=== PATIENT | female | born 1995 | race Caucasian/White ===

== ENCOUNTER 2019-03-01 11:04 | Emergency (ER) | payer MEDICAID ==
[~2019-03-01] VITALS: Ht 157.5 cm; Wt 75.0 kg
[2019-03-01 11:07] VITALS: BP 114/50
--- NOTE | 2019-03-01 11:13 | NUR ---
PATIENT AMBULATED TO BED 4.
--- NOTE | 2019-03-01 11:14 | NUR ---
Note undone in EDM - 03/01/19 at 1126 by MED1 / BIB FATHER C/O BRUISING AND SWELLING AROUND LEFT EYE X2 DAYS. PT DENEIS TRAUMA. PT REPORTS SWELLING GOT BIGGER AFTER USING FLUTICASONE & KETOPROFEN.MEDHX:EXCEMA. PATIENT STATES PAIN OF 0/10 AT THIS TIME. PATIENT POSITIONED FOR COMFORT; HOB ELEVATED; BEDRAILS UP X1; BED DOWN. ER MD MADE AWARE OF PT STATUS.
--- NOTE | 2019-03-01 11:14 | NUR ---
23/F BIB FATHER C/O BRUISING AND SWELLING AROUND LEFT EYE X2 DAYS. PT DENEIS TRAUMA. PT REPORTS SWELLING GOT BIGGER AFTER USING FLUTICASONE & KETOPROFEN.MEDHX:ECZEMA. PATIENT STATES PAIN OF 0/10 AT THIS TIME. PATIENT POSITIONED FOR COMFORT; HOB ELEVATED; BEDRAILS UP X1; BED DOWN. ER MD MADE AWARE OF PT STATUS.
--- NOTE | 2019-03-01 11:21 | NUR ---
Patient being evaluated by DR JOLLEY at bedside.
[2019-03-01 11:27] VITALS: BP 114/50
--- NOTE | 2019-03-01 11:27 | NUR ---
Patient discharged BY DR JOLLEY with v/s stable. Written and verbal after care instructions given and explained. Patient alert, oriented and verbalized understanding of instructions. Ambulatory with steady gait. All questions addressed prior to discharge. ID band removed. Patient advised to follow up with PMD. Rx of KEFLEX given. Patient educated on indication of medication including possible reaction and side effects. Opportunity to ask questions provided and answered.
== END 2019-03-01 11:27 | disposition home or self-care (01) ==
LOC: MED 11:04
DX: H01.005 Unspecified blepharitis left lower eyelid (principal)
CPT/HCPCS: 99283

== ENCOUNTER 2019-09-04 14:49 | Emergency (ER) | payer MEDICAID ==
[~2019-09-04] VITALS: Ht 165.1 cm; Wt 77.6 kg
[2019-09-04 14:55] VITALS: BP 118/59
--- NOTE | 2019-09-04 15:10 | NUR ---
Jones key in EDM - 09/04/19 at 1657 by CRISTINA Bib family c/o headache X 4 days with n/v. 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
--- NOTE | 2019-09-04 16:07 | NUR ---
PATIENT AMBULATED WITH STEADY GAIT TO BED 9.
--- NOTE | 2019-09-04 16:10 | NUR ---
Bib family c/o headache X 4 days with n/v. 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
[2019-09-04] MEDS ORDERED: KETOROLAC 30 MG/ML VIAL IVP ONE (16:25)
[2019-09-04] MEDS ORDERED: MECLIZINE 25 MG TAB PO ONE (16:25)
[2019-09-04] MEDS ORDERED: IBUPROFEN 600 MG TAB PO ONE (16:40)
[2019-09-04 17:21] VITALS: BP 121/54
--- NOTE | 2019-09-04 17:21 | NUR ---
Patient discharged with v/s stable. Written and verbal after care instructions given and explained. Patient alert, oriented and verbalized understanding of instructions. Ambulatory with steady gait. All questions addressed prior to discharge. ID band removed. Patient advised to follow up with PMD. Rx of MECLIZINE & MOTRIN given. Patient educated on indication of medication including possible reaction and side effects. Opportunity to ask questions provided and answered.
== END 2019-09-04 17:21 | disposition home or self-care (01) ==
LOC: MED 14:49
DX: R42 Dizziness and giddiness (principal); R51 Headache
CPT/HCPCS: 36415; 81002; 81025; 99283; J8597